=== PATIENT | male | born 1965 | race Caucasian/White ===

== ENCOUNTER → 2020-05-28 | Outpatient (CLI) | payer OTHER ==
[~2020-05-28] MED LIST: ALEVE220 M1 PO; CENTRUM SILVER1 EAC2 PO; FISH OIL 1,001000 M2 PO; PERCOCET 5-3251 EACH PO; PROBIOTIC1 EAC1 PO; TAMSULOSIN HCL0.4 MG PO; ZOFRAN ODT4 MG PO
== END ==
LOC: CAT 11:47
PROVIDERS: ATTEND Internal Medicine
DX: Z13.6 Encounter for screening for cardiovascular disorders (principal); I25.10 Atherosclerotic heart disease of native coronary artery without angina pectoris; E78.00 Pure hypercholesterolemia, unspecified

== ENCOUNTER → 2020-05-28 | Outpatient (CLI) | payer BC, OTHER | LOC: SJCVCIMAG 09:57 | PROVIDERS: ATTEND Internal Medicine | DX: I49.3 Ventricular premature depolarization (principal) ==